=== PATIENT | female | born 1990 | race Caucasian/White ===

== ENCOUNTER 2022-04-29 05:00 | Inpatient (IN) | payer SELFPAY ==
[2022-04-29] MEDS ORDERED: miSOPROStol 200 MCG TAB PR PRN (05:47)
[2022-04-29] MEDS ORDERED: TERBUTALINE 1 MG/1 ML INJ SUB-Q PRN (05:47)
[2022-04-29] MEDS ORDERED: METHYLERGONOVINE MALEATE 0.2 MG/ML VIAL IM PRN (05:47)
[2022-04-29] MEDS ORDERED: BUTORPHANOL 2 MG/1 ML INJ IV PRN (05:47)
[2022-04-29] MEDS ORDERED: LIDOCAINE (2%) 20 MG/1 ML VIAL 20 ML MDV INFILTRATI ONE (05:47)
[2022-04-29] MEDS ORDERED: ePHEDrine SULFATE 50 MG/1 ML INJ IV PRN ×2 (05:47→09:30)
[2022-04-29] MEDS ORDERED: fentaNYL 100 MCG/2 ML INJ IV PRN (05:47)
[2022-04-29] MEDS ORDERED: MINERAL OIL 30 ML ORAL LIQD PO PRN (05:47)
[2022-04-29] MEDS ORDERED: OXYTOCIN 10 UNIT/1 ML INJ IM PRN (05:47)
[2022-04-29] MEDS ORDERED: CARBOPROST TROMETHAMINE 250 MCG/1 ML INJ IM PRN (05:47)
[2022-04-29] MEDS ORDERED: LOPERAMIDE 2 MG CAP PO PRN (05:47)
[2022-04-29] MEDS ORDERED: ACETAMINOPHEN 325 MG TAB PO PRN ×2 (05:47→16:00)
[2022-04-29] MEDS ORDERED: AMPICILLIN/NS 2 GM/100 ML 2 GM/100 ML BAG IV ONE (05:56)
[2022-04-29] MEDS ORDERED: OXYTOCIN DRIP 30 UNITS/500 ML BAG IV SCH (06:00)
[2022-04-29] MEDS ORDERED: miSOPROStol 25 MCG TAB PO SCH (06:00)
[2022-04-29 06:23] LABS: Hemoglobin 11.4 gm/dl (10.1-14.3); Mean Corpuscular HGB Conc 33 % (30-34); Mean Corpuscular Volume 83 fl (79-97); Platelet Count 228 K/mm3 (140-440); Red Blood Count 4.12 M/mm3 (3.65-5.03)
[2022-04-29] MEDS: LACTATED RINGERS 1,000 ML IV SCH ×3 (06:41→08:57)
[2022-04-29 06:54] LABS: Bilirubin,Urine NEG (Negative); Blood,Urine MOD (Negative); Color,Urine Yellow (Yellow); Mucus,Urine FEW /HPF; Urobilinogen,Urine < 2.0 mg/dL (<2.0)
--- NOTE | 2022-04-29 07:24 | Ultrasound Report ---
US OB follow up INDICATION / CLINICAL INFORMATION: EFW, BALA COMPARISON: None available. TECHNIQUE: Using a transcutaneous probe, multiple grayscale, color Doppler, and spectral Doppler imag es of the uterus and fetus were captured and stored. FINDINGS: A single cephalic fetus with heart rate of 148 bpm is demonstrated. Mild oligohydramnios is present. The BALA is 6.7 cm. Biparietal Diameter = 9.5 cm = 38, 4 weeks, days Head Circumference = 33.3 cm = 38, 0 weeks, days Abdominal Circumference = 32.4 cm = 36, 2 weeks, days Femur Length = 7.7 cm = 39, 4 weeks, days Average Ultrasound Age (AUA) = 38, 1 weeks, days. EDC 05/12/2022. Clinical estimated gestational age is 39 weeks 5 days. Estimated weight = 3252 g. Growth percentile 24% IMPRESSION: 1. Single living intrauterine gestation with mild oligohydramnios. Estimated weight 3252 g. Signer Name: Kuldeep Patel II, MD Signed: 04/29/2022 7:20 AM Workstation Name: [id number]
--- NOTE | 2022-04-29 07:27 | History and Physical Report ---
History of Present Illness Date of examination: 04/29/22 Date of admission: 04/29/22 05:47 Chief complaint: Leakage of fluid History of present illness: 32-year-old at 39-5/7 weeks gestation presents to OB triage reporting leaking of fluid. There are irregular contractions. There is good movement. There is no vaginal bleeding. Clinically, the patient appeared to have grossly ruptured membranes. There are no ROM plus tests available at this hospital at this time. OB ultrasound revealed an amniotic fluid index of 6.7 cm. As this patient is greater than 39 weeks gestation, she is admitted to labor and delivery out of an abundance of caution for induction of labor secondary to suspected Term PROM. records reveal that she is GBS positive. Past History Past Medical History: neurologic (H/O Anxiety), lung disease (H/O COVID-19) Past Surgical History: appendectomy Family/Genetic History: diabetes (Grandfather) Social history: no significant social history - Obstetrical History Expected Date of Delivery: 05/01/22 Actual Gestation: 39 Week(s) 5 Day(s) : 4 Para: 3 Hx # Term Pregnancies: 3 Medications and Allergies Allergies Allergy/AdvReac Type Severity Reaction Status Date / Time No Known Allergies Allergy Verified 08/17/14 09:34 Home Medications Medication Instructions Recorded Confirmed Last Taken Type Zolpidem [Ambien] 1 tab PO PRN PRN 08/17/14 09/04/14 Unknown History Ibuprofen [Motrin 600 MG tab] 600 mg PO Q6H #30 tablet 09/05/14 Unknown Rx oxyCODONE /ACETAMINOPHEN [Percocet 2 tab PO Q4H PRN #30 tablet 09/05/14 Unknown Rx 5/325 mg] Active Meds: Active Medications Acetaminophen (Acetaminophen 325 Mg Tab) 650 mg PO Q4H PRN PRN Reason: Pain, Mild (1-3) Butorphanol Tartrate (Butorphanol 2 Mg/1 Ml Inj) 1 mg IV Q2H PRN PRN Reason: Pain, Moderate(4-6) LABOR PAIN Carboprost Tromethamine (Carboprost Tromethamine 250 Mcg/1 Ml Inj) 250 mcg IM ONCE PRN PRN Reason: Uterine Bleeding Ephedrine Sulfate (Ephedrine Sulfate 50 Mg/1 Ml Inj) 10 mg IV Q2M PRN PRN Reason: Hypotension Fentanyl (Fentanyl 100 Mcg/2 Ml Inj) 100 mcg IV Q2H PRN PRN Reason: Pain,Severe (7-10) LABOR PAIN Lactated Ringer's (Lactated Ringers) 1,000 mls @ 125 mls/hr IV DIRECT [facility] Last Admin: 04/29/22 06:41 Dose: 125 mls/hr Oxytocin/Sodium Chloride (Pitocin/Ns 30 Unit/500ml) 30 units in 500 mls @ 40 mls/hr IV TITR JACOB; Protocol Methylergonovine Maleate (Methylergonovine Maleate 0.2 Mg/Ml Vial) 0.2 mg IM ONCE PRN PRN Reason: Uterine Bleeding Misoprostol (Misoprostol 25 Mcg Tab) 50 mcg PO Q4H [facility] Last Admin: 04/29/22 06:49 Dose: 50 mcg Terbutaline Sulfate (Terbutaline 1 Mg/1 Ml Inj) 0.25 mg SUB-Q ONCE PRN PRN Reason: Hyperstimulation/Hypertonicity Review of Systems All systems: negative - Vital Signs Vital signs: Vital Signs Pulse BP 75 137/81 04/29/22 05:09 04/29/22 05:09 Temp Pulse Resp BP Pulse Ox 98.5 F 84 114/73 99 04/29/22 05:12 04/29/22 07:22 04/29/22 06:40 04/29/22 07:22 - Physical Exam Breasts: Positive: normal Cardiovascular: Regular rate Lungs: Positive: Normal air movement Abdomen: Positive: normal appearance Genitourinary (Female): Positive: normal external genitalia, normal perenium Vulva: both: normal Vagina: Positive: normal moisture Uterus: Positive: enlarged Adnexa: both: normal Anus/Rectum: Positive: normal perianal skin Extremities: Positive: normal Deep Tendon Reflex Grade: Normal +2 - Obstetrical FHR: category 1 Uterine Contraction Monitor Mode: External Cervical Dilatation: 1 Cervical Effacement Percentage: 50 station: -3 Uterine Contraction Frequency (min): 10 Uterine Contraction Pattern: Irregular Results Result Diagrams: 04/29/22 05:25 Abnormal lab results 04/29/22 04/29/22 Range/Units 05:25 05:30 RDW 20.0 H (13.2-15.2) % Urine WBC (Auto) 24.0 H (0.0-6.0) /HPF U Epithel Cells (Auto) 24.0 H (0-13.0) /HPF All other labs normal. Ultrasound: image reviewed (OB ultrasound Limited= SLIUP. Vertex. EFW= 3252 g (24th %-ile). BALA= 6.7 cm.) Assessment and Plan - Patient Problems (1) 39 weeks gestation of Current Visit: Yes Status: Acute Plan to address problem: care is up-to-date at [facility]. She is GBS positive. (2) Full-term PROM with onset of labor within 24 hours of rupture Current Visit: Yes Status: Acute Plan to address problem: Clinically, the patient appears to have grossly ruptured membranes. ROM plus tests are not available at this hospital at this time. Amniotic fluid index is 6.7 cm. As this patient is greater than 39 weeks gestation, this patient is admitted to labor and delivery out of an abundance of caution for induction of labor sec ondary to suspected Term PROM. (3) GBS (group B Streptococcus carrier), +RV culture, currently Current Visit: Yes Status: Acute Plan to address problem: Administer penicillin for intrapartum GBS prophylaxis. (4) Encounter for induction of labor Current Visit: Yes Status: Acute Plan to address problem: Ordered Cytotec 50 mcg p.o. every 4 hours to ripen cervix.
--- NOTE | 2022-04-29 08:47 | Anesthesia Consultation ---
Anesthesia Consult and Med Hx Date of service: 04/29/22 - Airway Anesthetic Teeth Evaluation: Good ROM Head & Neck: Adequate Mental/Hyoid Distance: Adequate Mallampati Class: Class II Intubation Access Assessment: Good - Pulmonary Exam CTA: Yes - Cardiac Exam Cardiac Exam: RRR - Pre-Operative Health Status ASA Pre-Surgery Classification: ASA2 Proposed Anesthetic Plan: Epidural - Pulmonary Hx Asthma: No COPD: No Hx Pneumonia: No - Cardiovascular System Hx Hypertension: No - Central Nervous System Hx Seizures: No Hx Psychiatric Problems: No - Endocrine Hx Renal Disease: No Hx End Stage Renal Disease: No Hx Hypothyroidism: No Hx Hyperthyroidism: No - Hematic Hx Anemia: Yes Hx Sickle Cell Disease: No - Other Systems Hx Alcohol Use: No
[2022-04-29] MEDS ORDERED: fentaNYL-BUPIV 2 MCG/ML-0.125% 200 MCG/100 ML BAG EPIDURAL SCH (09:00)
--- NOTE | 2022-04-29 09:17 | Progress Note ---
Spinal Anesthesia Block - Spinal Anesthesia Block Start Time: 08:53 Stop Time: :08 Performed by:: TALHA MORA Procedure: Patient is requesting combined spinal epidural for labor and pain. H&P, labs were reviewed. All questions and concerns were answered. Informed consent was obtained. Timeout performed. Patient in sitting position on side of bed. Sterile prep and drape was performed. 3 mL 1% lidocaine skin wheal at L [3]-L [4]. 17-gauge Tuohy epidural needle advanced to [id number] using air technique, []. 25-gauge spinal needle advanced, positive free-flowing CSF. . Epidural catheter advanced to [12] cm. [negative] Aspiration, [negative] test dose. Precedex 40mcg loading dose given. Sterile dressing applied. Patient tolerated procedure well.
[2022-04-29] MEDS ORDERED: NALOXONE 0.4 MG/1 ML INJ IV PRN (09:30)
--- NOTE | 2022-04-29 09:41 | Event Note ---
Date: 04/29/22 pt seen and evaluated after sign out received from Dr. Mccollum this morning. Pelvic exam at that time was /-1 for me with scant bloody mucus. Pt counseled and later received epidural. Repeat pelvic by Nurse Pena with pelvic unchanged. Pt also was given ephedrine x1 dose for hypotensive episode that occured post epidural and FHR at that time was category II and resolved with repositioning, oxygen, left lateral position and IV fluid bolus. Will observe for another 2 hrs, and if unchanged, will augment with IV pitocin. Pt to continue PCN for GBS+. All questions encouraged and answered.
--- NOTE | 2022-04-29 10:18 | Event Note ---
Date: 04/29/22 Pt evaluated with tacchysystole with severe decels; pelvic 9.5/100/0 station. Pt given brethine 0.25mg SQ now. Will prepare for vag delivery. Pt only received amp 2gram not amp as written by Dr. Mccollum, therefore, I will give amp 1gram now prior to delivery. All questions encouraged and answered.
[2022-04-29] MEDS ORDERED: AMPICILLIN/NS 1 GM/50 ML 1 GM/50 ML BAG ONE (10:27)
[2022-04-29] MEDS ORDERED: AMPICILLIN/NS 1 GM/50 ML 1 GM/50 ML BAG IV SCH (11:00)
[2022-04-29] MEDS: OXYTOCIN DRIP 30 UNITS/500 ML BAG IV SCH ×2 (11:34→13:48)
--- NOTE | 2022-04-29 11:40 | Event Note ---
Date: 04/29/22 pt reevaluated and FHR category I and pelvic unchanged. IUPC placed to evaluate the strength of the contractions and if needed amnioinfusion. Pt has received 2 doses of ampicillin and will now start pitocin and plan to deliver when complete. Plan of care discussed with pt. all questions encouraged and answered.
[2022-04-29] MEDS ORDERED: ONDANSETRON 4 MG/2 ML INJ ONE (11:54)
[2022-04-29] MEDS ORDERED: MINERAL OIL 30 ML ORAL LIQD ONE (12:09)
--- NOTE | 2022-04-29 13:01 | Procedure Note ---
OB Delivery Note - Vaginal Delivery presentation: vertex Delivery position: OA Intrapartum events: meconium, shoulder dystocia Delivery induction: misoprostol (50mcg) Delivery augmentation: pitocin (at 9.5cm) Delivery monitor: external FHT, external uterine, internal uterine Route of delivery: Delivery placenta: spontaneous Delivery cord: 3 umbilical vessels Episiotomy: none Delivery laceration: 1st degree (perineal) Delivery repair: chromic Anesthesia: epidural Delivery comments: SAVD of viable female . Pt pushing and turtle sign occured after head delivered. Pt exhausted and shoulder dystocia relieved with Domenico position, suprapubic pressure by nurse and delivery of posterior arm by me. Wt 3520g; ARPGARS 7/8 and umbilical artery gas pH 7.01 and BE -13.2; Baby moving both arms well. NICU present. Clear amniotic fluid noted in IUPC prior to delivery with moderate amount of meconium seen as baby delivered. Spontaneous delivery of intact placenta with 3vessel cord and same sent to pathology. Visual inspection of cervix without lacerations. Pt sustained 1st degree perineal laceration and same repaired with 2-0 chromic subcutaneously. Mom and baby stable. Epidural in progress during delivery. - Infant A at 1 minute: 7 at 5 minutes: 8 Infant Gender: Female (wt 3580g; Umb artery gas pH 7.01 and BE -13.2)
[2022-04-29] MEDS ORDERED: oxyCODONE /ACETAMINOPHEN 5-325MG TAB PO PRN (16:00)
[2022-04-29] MEDS ORDERED: LANOLIN/ZINC/DIMETHICONE (LANSINOH) 7 GM TP PRN (16:00)
[2022-04-29] MEDS ORDERED: PROMETHAZINE 25 MG RECT SUPP PR PRN (16:00)
[2022-04-29] MEDS ORDERED: diphenhydrAMINE 25 MG CAP PO PRN (16:00)
[2022-04-29] MEDS ORDERED: WITCH HAZEL/ GLYCERIN PAD TP PRN (16:00)
[2022-04-29] MEDS ORDERED: BENZOCAINE/MENTHOL 20/0.5% TOP SPRAY 56 GM TP PRN (16:00)
[2022-04-29] MEDS ORDERED: PROMETHAZINE 25 MG TAB PO PRN (16:00)
[2022-04-29] MEDS ORDERED: ONDANSETRON 4 MG/2 ML INJ IV PRN (16:00)
[2022-04-29] MEDS: IBUPROFEN 800 MG TAB PO SCH ×2 (16:01→22:05)
[2022-04-29] MEDS ORDERED: MAGNESIUM HYDROXIDE (MOM) ORAL LIQD UDC PO PRN (22:00)
[2022-04-29] MEDS ORDERED: HYDROCORTISONE 25 MG RECTAL SUPP PR PRN (22:00)
[2022-04-30] MEDS: IBUPROFEN 800 MG TAB PO SCH ×2 (03:20→10:26)
[2022-04-30 07:59] LABS: Hematocrit 30.3 % (30.3-42.9); Hemoglobin 9.9 gm/dl (10.1-14.3); Mean Corpuscular HGB Conc 33 % (30-34); Mean Corpuscular Volume 83 fl (79-97); Platelet Count 211 K/mm3 (140-440); Red Blood Count 3.67 M/mm3 (3.65-5.03)
--- NOTE | 2022-04-30 09:46 | Discharge Summary ---
Providers - Providers Date of Admission: 04/29/22 05:47 Date of discharge: 04/30/22 (After baby is cleared) Attending physician: MD Roland TAY Heather Primary care physician: WILLY LARA MD Hospitalization Delivery: Episiotomy: none Laceration: 1st degree (perineal) Other procedures: none complications: none Discharge diagnosis: IUP at term delivered [place] baby: female Condition at discharge: Good Disposition: 01 HOME / SELF CARE / HOMELESS Plan - Provider Discharge Summary Activity: routine, no sex for 6 weeks, no heavy lifting 4 weeks, no strenuous exercise Diet: routine Instructions: routine Additional instructions: [] Smoking cessation referral if applicable(refer to patient education folder for contact #) [] Refer to [facility]'s [facility] Booklet Call your doctor immediately for: * Fever > 100.5 * Heavy vaginal bleeding ( >1 pad per hour) * Severe persistent headache * Shortness of breath * Reddened, hot, painful area to leg or breast * Drainage or odor from incision. * Keep incision clean and dry at all times and follow doctor's instructions regarding bathing/showering - Follow up plan Follow up: WILLY LARA MD [Primary Care Provider] - 7 Days
[2022-04-30] MEDS ORDERED: PRENATAL VIT27-FE FUMARATE-FOLIC ACID VIT TAB PO SCH (10:00)
[2022-04-30 12:24] VITALS: BP 115/69
== END 2022-04-30 15:34 | disposition home or self-care (01) | DRG 807 ==
LOC: TRG 05:00 → APU 05:01 → LD 05:47 → OBSVTOIN 05:47 → TRG 05:47 → LD 05:54 → OB 15:41
PROVIDERS: ADMIT Obstetrics & Gynecology; ATTEND Obstetrics & Gynecology
PROC: 10E0XZZ Delivery of Products of Conception, External Approach (ICD-10-PCS; principal; 2022-04-29)
PROC: 0HQ9XZZ Repair Perineum Skin, External Approach (ICD-10-PCS; 2022-04-29)
PROC: 3E0R3BZ Introduction of Anesthetic Agent into Spinal Canal, Percutaneous Approach (ICD-10-PCS; 2022-04-29)
PROC: 00HU33Z Insertion of Infusion Device into Spinal Canal, Percutaneous Approach (ICD-10-PCS; 2022-04-29)
DX: O42.02 Full-term premature rupture of membranes, onset of labor within 24 hours of rupture (principal); Z37.0 Single live birth; O99.820 Streptococcus B carrier state complicating pregnancy; Z3A.39 39 weeks gestation of pregnancy; Z20.822 Contact with and (suspected) exposure to COVID-19; Z90.49 Acquired absence of other specified parts of digestive tract; Z83.3 Family history of diabetes mellitus; O70.0 First degree perineal laceration during delivery; O77.0 Labor and delivery complicated by meconium in amniotic fluid; O66.0 Obstructed labor due to shoulder dystocia
CPT/HCPCS: 36415; 76816; 81001; 82805; 85027; 86592; 86850; 86900; 86901; 87086; 88307; 99211; G0378; J3490; G0463; J0290; J2210; J2590; J3010; J3105; J7120; U0003